=== PATIENT | male | born 1955 | race Caucasian/White ===

== ENCOUNTER → 2016-08-27 | Outpatient (CLI) | payer BC ==
[~2016-08-27] MED LIST: ASPIRIN PO; LOTREL 5/10 MG1 CAP PO; METFORMIN PO; SYNTHROID PO; ZOCOR PO
--- NOTE | ~2016-08-27 | US77 ---
[facility] A Service of [facility] RADIOLOGY TEXT RESULTS PATIENT: KATHY DUNBAR LOCATION: US : 57 UNIT #: [id number] AGE: [address]: Hilario Vaca MD SEX: M ORDER DR: [id number] [facility] [address] [place], [place] [address] [id number] O MR#: [id number] Acc #: [id number] NAME: KATHY DUNBAR. : 1955 SEX: M STUDY DATE/TIME: 08/27/2016 12:36 UNIT: CGUS ROOM: STUDY DESCRIPTION: US Kidney Bilateral Complete Attending Physician: Hilario Vaca Jr., M.D. Referring Physician: Hilario Vaca Jr., M.D. Ordering Physician: Hilario Vaca Jr., M.D. Primary Care Physician: Hilario Vaca Jr., M.D. MEDICAL IMAGING REPORT This report is preliminary unless electronic signature is present EXAM Renal ultrasound INDICATIONS Renal insufficiency. Elevated creatinine level. GFR 44, BUN 19, creatinine 1.62. PROCEDURE Padgett-scale and Doppler imaging kidneys and bladder. COMPARISON None FINDINGS Right kidney measures 10.5 cm. No hydronephrosis. Bladder is distended with a volume of 754 mL. Left kidney measures 12.2 cm. No hydronephrosis. Kidneys show normal cortical thickness. IMPRESSION Bladder is moderately distended with urine. Otherwise negative renal ultrasound. Dictated by... Raghav Torre M.D. THIS IS AN ELECTRONICALLY VERIFIED REPORT Raghav Torre M.D. at 08/28/2016 7:19 AM E[address] TD: 08/27/2016 22:58 JOB #: [id number] [facility] A Service of [facility] RADIOLOGY TEXT RESULTS PATIENT: KATHY DUNBAR LOCATION: [facility] : 57 UNIT #: [id number] AGE: [address]: Hilario Vaca MD SEX: M ORDER DR: MEDICAL IMAGING REPORT Page 1 of 1 COPY
== END | disposition home or self-care (01) ==
LOC: CGUS 12:15
DX: R79.89 Other specified abnormal findings of blood chemistry (principal); N32.9 Bladder disorder, unspecified
CPT/HCPCS: 76770